=== PATIENT | male | born 1960 | race Caucasian/White ===

== ENCOUNTER 2018-03-02 08:51 | Day surgery (SDC) | payer OTHER ==
[2018-03-02] MEDS ORDERED: PROPOFOL 40 ML (11:39)
[2018-03-02] MEDS ORDERED: FENTAnyl 50 MCG/ML VIAL (11:39)
[2018-03-02] MEDS ORDERED: LIDOCAINE 2% (SDV) 5 ML INJ (11:39)
[2018-03-02] MEDS ORDERED: OXYCODONE/ACETAMINOPHEN (5/325) TAB PO ×2 (12:00)
[2018-03-02] MEDS ORDERED: FENTAnyl 50 MCG/ML VIAL IV ×3 (12:00)
[2018-03-02] MEDS ORDERED: EPHEDrine SULFATE 50 MG/5 ML SYG IV (12:00)
[2018-03-02] MEDS ORDERED: ALBUTEROL 0.083% (NEB) 2.5 MG/3 ML AMP HHN (12:00)
[2018-03-02] MEDS ORDERED: HYDROmorphONE 1 MG/5 ML IV SYRINGE IV ×3 (12:00)
[2018-03-02] MEDS ORDERED: MIDAZOLAM 1 MG/ML 2 ML INJ IV (12:00)
[2018-03-02] MEDS ORDERED: hydrALAzine 20 MG INJ IV (12:00)
[2018-03-02] MEDS ORDERED: LABETALOL HCL 20MG INJ IV (12:00)
[2018-03-02] MEDS ORDERED: IPRATROPIUM (NEB) 0.5 MG/2.5 ML AMP HHN (12:00)
[2018-03-02] MEDS ORDERED: MEPERIDINE 25 MG INJ IV (12:00)
[2018-03-02] MEDS ORDERED: TRIMETHOBENZAMIDE 100 MG/ML VIAL IM (12:00)
[2018-03-02] MEDS ORDERED: DIPHENHYDRAMINE 50 MG INJ IV (12:00)
[2018-03-02] MEDS ORDERED: ONDANSETRON 4 MG INJ IV (12:00)
== END 2018-03-02 15:30 | disposition home or self-care (01) ==
LOC: CCL 08:51 → SDS 08:51 → CCL 15:30
DX: I48.0 Paroxysmal atrial fibrillation (principal); I10 Essential (primary) hypertension; E78.5 Hyperlipidemia, unspecified
CPT/HCPCS: 71045; 92960; 93005; 93312; 93320; 93325